=== PATIENT | male | born 1965 | race Caucasian/White ===

== ENCOUNTER 2016-09-02 10:27 | Emergency (ER) | payer MEDICARE, MEDICAID | END 2016-09-02 12:58 | disposition home or self-care (01) | LOC: ER 10:27 | DX: S00.31XA Abrasion of nose, initial encounter (principal); S00.81XA Abrasion of other part of head, initial encounter; S00.511A Abrasion of lip, initial encounter; S00.33XA Contusion of nose, initial encounter; S00.531A Contusion of lip, initial encounter; S90.31XA Contusion of right foot, initial encounter; S02.5XXA Fracture of tooth (traumatic), initial encounter for closed fracture; W01.0XXA Fall on same level from slipping, tripping and stumbling without subsequent striking against object, initial encounter; Y92.488 Other paved roadways as the place of occurrence of the external cause; E78.00 Pure hypercholesterolemia, unspecified; G40.909 Epilepsy, unspecified, not intractable, without status epilepticus; M79.7 Fibromyalgia; J45.909 Unspecified asthma, uncomplicated; E78.5 Hyperlipidemia, unspecified; K21.9 Gastro-esophageal reflux disease without esophagitis; Z79.899 Other long term (current) drug therapy | CPT/HCPCS: 70450; 70486 ==